=== PATIENT | female | born 1930 | race Caucasian/White ===

== ENCOUNTER 2018-11-25 14:55 | Emergency (ER) | payer MEDICARE, MEDICAID ==
[~2018-11-25] VITALS: Ht 175.3 cm; Wt 50.9 kg
[2018-11-25 15:10] VITALS: BP 148/61
--- NOTE | 2018-11-25 15:30 | NUR ---
PT TO ED REFFERED BY PMD FOR ABNORMAL LABS. PT UNABLE TO RECALL WHAT LAB RESULT WAS ABNORMAL. PT DENIES ANY PAIN AT THIS TIME. PT PLACED IN ED BED PENDING MD SANDHU.
[2018-11-25 17:14] LABS: BASOPHILS % (AUTO) 0.6 % (0.0-2.0); EOSINOPHILS # (AUTO) 0.1 K/uL (0-0.4); EOSINOPHILS % (AUTO) 1.6 % (0.0-4.0); LYMPHOCYTES # (AUTO) 0.9 K/uL (2.5-16.5); LYMPHOCYTES % (AUTO) 16.5 % (20.5-51.1); MEAN CORPUSCULAR HEMOGLOBIN 27 pg (27-31); MEAN CORPUSCULAR HGB CONC 33 g/dL (33-37); MEAN CORPUSCULAR VOLUME 81.8 fL (80-94); MONOCYTES # (AUTO) 0.4 K/uL (0.8-1.0); MONOCYTES % (AUTO) 7.3 % (1.7-9.3); NEUTROPHILS # (AUTO) 4.2 K/uL (1.8-7.7); PLATELET COUNT (AUTO) 189 K/uL (140-450); RED BLOOD CELL COUNT(AUTO) 3.67 MIL/uL (4.20-5.40); RED CELL DISTRIBUTION WIDTH 15.1 % (11.6-13.7); WHITE BLOOD COUNT (AUTO) 5.7 K/uL (4.8-10.8)
[2018-11-25 17:23] LABS: ANION GAP 13.7 (8-16); CARBON DIOXIDE 24.8 mmol/L (21-32); CHLORIDE 93 mmol/L (98-107); CREATININE 0.7 mg/dL (0.6-1.3); GLUCOSE 84 mg/dL (74-106); POTASSIUM 4.5 mmol/L (3.5-5.1); SODIUM SERUM 127 mmol/L (136-145); UREA NITROGEN, BLOOD 6 mg/dL (7-18)
[2018-11-25 17:39] LABS: ALBUMIN 3.4 g/dL (3.4-5.0); ASPARTATE AMINOTRANSFERASE 17 U/L (15-37); THYROID STIMULATING HORMONE 15.81 uIU/mL (0.34-3.74); TOTAL BILIRUBIN 0.2 mg/dL (0.0-1.0)
--- NOTE | 2018-11-25 17:45 | NUR ---
PT REQUESTING TO AMBULATE TO RESTROOM. AMBULATED WITH ASSIST FROM WALKER AND .
[2018-11-25 18:53] VITALS: BP 139/68
--- NOTE | 2018-11-25 18:54 | NUR ---
Patient discharged with v/s stable. Written and verbal after care instructions given and explained. Patient alert, oriented and verbalized understanding of instructions. Ambulatory with steady gait. All questions addressed prior to discharge. ID band removed. Patient advised to follow up with PMD. Rx of SYNTHROID given. Patient educated on indication of medication including possible reaction and side effects. Opportunity to ask questions provided and answered.
== END 2018-11-25 18:54 | disposition home or self-care (01) ==
LOC: MED 14:55
DX: E87.1 Hypo-osmolality and hyponatremia (principal); M54.9 Dorsalgia, unspecified; E03.9 Hypothyroidism, unspecified; E11.9 Type 2 diabetes mellitus without complications; I10 Essential (primary) hypertension; E78.00 Pure hypercholesterolemia, unspecified; Z88.0 Allergy status to penicillin
CPT/HCPCS: 36415; 80053; 84439; 84443; 85025; 99283